=== PATIENT | female | born 1950 | race Hispanic/Latino ===

== ENCOUNTER → 2018-09-17 | Outpatient (CLI) | payer OTHER ==
[~2018-09-17] MED LIST: LIDOCAINE HCL 1% 10 ML VIAL ONE
--- NOTE | 2018-09-17 11:45 | NUR ---
LUMBAR PUNCTURE WITH OPEN PRESSURE PROCEDURE PERFORMED BY DR Ilia SINGLETARY. PUNCTURE SITE LOWER BACK. PATIENT TOLERATED PROCEDURE WELL. OPEN PRESSURE 5MM/H20. BLOOD TINGED CSF 10 ML COLLECTED AND SENT TO LAB. SPINAL NEEDLE REMOVED AND BAND AID APPLIED WITH NO BLEEDING NOTED. REPORT GIVEN TO Rustam HARRIS RN AND PATIENT TRANSPORTED TO [facility] VIA STE AT 1145. PATOENT CONFUSED WITH NO C/O PAIN.
[2018-09-17 12:07] LABS: GLUCOSE, CSF 5 mg/dL (40-70)
[2018-09-17 12:30] LABS: TOTAL PROTEIN, CSF 545 mg/dL (15-45)
[2018-09-17 13:48] LABS: APPEARANCE,CSF CLOUDY (CLEAR); COLOR,CSF XANTHOCHROMIC (COLORLESS); CSF TUBE NUMBER 2
[2018-09-17 13:49] LABS: WHITE BLOOD CELL1,CSF 9 CMM (0-5)
[2018-09-17 13:50] LABS: RED BLOOD CELL1,CSF 4675 CMM (0-0)
[2018-09-17 13:54] LABS: LYMPHOCYTES1,CSF 58 %; MONOCYTES1,CSF 6 %; NEUTROPHILS1,CSF 36 %
== END | disposition home or self-care (01) ==
LOC: RAH 10:12
PROVIDERS: ATTEND Internal Medicine Infectious Disease
DX: G03.9 Meningitis, unspecified (principal)
CPT/HCPCS: 62270; 82945; 84157; 87071; 87205; 87210; 89051; J3490

== ENCOUNTER → 2018-10-07 | Outpatient (CLI) | payer OTHER, MEDICARE ==
[~2018-10-07] MED LIST changes: +GADODIAMIDE 5 MMOL/10 ML VIAL 5 MMOL/10 ML ML IV ONE; -LIDOCAINE HCL 1% 10 ML VIAL ONE
== END | disposition home or self-care (01) ==
LOC: RAH 06:58
PROVIDERS: ATTEND Internal Medicine Hematology & Oncology
DX: R41.82 Altered mental status, unspecified (principal)
CPT/HCPCS: 70553; A9579